=== PATIENT | female | born 1990 | race Caucasian/White ===

== ENCOUNTER → 2016-12-06 | Outpatient (CLI) | payer OTHER | LOC: KOH-I 16:20 | DX: R51 Headache (principal) | CPT/HCPCS: 70450 ==

== ENCOUNTER 2020-08-15 02:46 | Emergency (ER) | payer OTHER ==
[~2020-08-15 02:46] MED LIST: CEFUROXIME500 MG PO; IBUPROFEN800 MG PO; ONDANSETRON ODT4 MG PO; PYRIDIUM200 MG PO
[2020-08-15 03:43] LABS: HEMOGLOBIN 11.9 gm/dl (12.3-15.3); RED BLOOD COUNT 5.12 M/UL (4.00-5.10); WHITE BLOOD COUNT 10.8 K/UL (4.5-11.0)
[2020-08-15 04:13] LABS: BUN/CREATININE RATIO 13 (0-10)
== END 2020-08-15 06:45 | disposition home or self-care (01) ==
LOC: ER1 02:46
PROVIDERS: Emergency Medicine
DX: O99.891 Other specified diseases and conditions complicating pregnancy (principal); R10.13 Epigastric pain; R55 Syncope and collapse; O21.9 Vomiting of pregnancy, unspecified; Z3A.20 20 weeks gestation of pregnancy; Z20.822 Contact with and (suspected) exposure to COVID-19
CPT/HCPCS: 80053; 82550; 82553; 83690; 83874; 84484; 85025; 85379; 93005; 99284; Q9967; U0002